=== PATIENT | male | born 2005 | race Caucasian/White ===

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

== ENCOUNTER 2023-11-09 03:41 | Emergency (ER) | payer OTHER, SELFPAY ==
[2023-11-09 03:43] VITALS: BP 126/83; PULSE 79; RESP 18; TEMP 36.6; O2SAT 98; BMI 19.0
--- NOTE | 2023-11-09 04:25 | EDS_ITS ---
HPI History of Present Illness Chief Complaint: Laceration Informant: patient and family Narrative Narrative: Patient is a 17-year-old male with no significant past medical history. He states roughly 30 minutes prior to arrival he was walking through the garage w ith the lights off when he tripped and fell and cut his left forearm/elbow on a piece of metal. He denies striking his head or any loss of consciousness. He denies any other injury. He states his tetanus status was recently updated a few months ago after a cat bite. He states that he is concerned he may need sutures secondary to the laceration and therefore comes in for evaluation [facility] Medical History (Updated 11/09/23 @ 05:[address] Saw Monreal, ) Cellulitis of left lower eyelid Home Medications ?Medication ?Instructions ?Recorded ?Last Taken ?Type cephalexin 500 mg capsule 500 mg PO BID 7 days #14 caps 11/09/23 Unknown Rx Allergy/AdvReac Type Severity Reaction Status Date / Time No Known Allergies Allergy Verified 11/09/23 03:47 Social History Smoking Status: Never smoker ROS ROS ED Constitutional Constitutional ED: Denies chills or fever(s) Eyes Eyes: Denies blurry vision, change in vision or diplopia ENT ENT ED: Denies sore throat Cardiovascular Cardiovascular: Reports other Details: Negative syncope ; Denies chest pain Respiratory/Chest Respiratory/Chest: Denies cough or dyspnea Gastrointestinal Gastrointestinal: Denies abdominal pain, diarrhea, nausea or vomiting Genitourinary Genitourinary ED: Denies dysuria Musculoskeletal Musculoskeletal: Denies myalgias Integumentary Reports other Details: Positive left elbow laceration Neurologic Neurologic: Denies headache(s), paresthesias or weakness Hematologic/Lymphatic Hematologic/Lymphatic: Denies easy bleeding or easy bruising EXAM Physical Exam Const Vital Signs: 11/09/23 03:43 11/09/23 04:33 Temperature 97.8 F 98.0 F Temperature Source Temporal Pulse Rate 79 66 Respiratory Rate 18 18 Blood Pressure 126/83 H 150/86 H Blood Pressure Mean 97 107 Pulse Ox 98 99 Oxygen Delivery Method Room Air Positive well nourished and well developed General Appearance ED: well developed HEENT HEENT Narrative: Normocephalic atraumatic Eyes PERRL and EOMs intact bilaterally Neck supple Neck Narrative: No bony deformity or step-off of the cervical spine no midline tenderness to palpation Resp normal respiratory effort and clear to auscultation bilaterally Cardio regular rate and regular rhythm Extremity Extremity Narrative: Left upper extremity is neurovascular intact; AIN/PIN are intact and normal. Patient has full active range of motion. No bony deformity or joint effusion. Along the proximal portion of the left dorsal aspect of the radius is a 1.5 cm crescent shaped subcutaneous layer deep laceration with minimal ooze of blood and no foreign body. No ligamentous or tendon injury noted Remainder of the exam is normal Neuro oriented x3, CN's II-XII intact bilaterally and no sensory deficits noted Sensorium / Orientation: alert Motor Exam: strength 5/5 throughout Psych mental status grossly normal Skin Skin Narrative: Laceration to the left elbow as documented above MDM MDM MDM Narrative Medical decision making narrative: Patient arrived to the ER with stable vitals and reported a mechanical fall that led to a simple laceration of the left elbow. Exam does not show findings of ligamentous or tendon injury or signs of bony trauma nor is or joint effusion so I do not feel there is need for x-ray. Also the wound was probed and there is no retained foreign body. As the patient's tetanus status was recently updated there is no need to provide this either. However as the wound is moderately contaminated occurring in a dirty garage he will be placed on a 7-day course of Keflex for infection prophylaxis. The wound was closed as document below and fi ndings patient is otherwise safe for discharge Patient had the left elbow wound cleaned with chlorhexidine. It was anesthetized with 5 mL of 2% lidocaine with epinephrine and local fashion. The wound was copiously irrigated with normal saline. The patient then had five 4-0 Ethilon sutures placed in simple interrupted fashion. This brought the wound together with good approximation. Patient tolerated procedure well without complication. History & Record Review Discussion w/independent historian: Patient and Family Discharge Plan Triage Chief Complaint: Laceration Other Complaint: Lower Extremity Injury ED Provider: Saw Monreal Dx/Rx/DC Orders Clinical Impression: Laceration of elbow, left, Accidental fall Instructions: ED Laceration, All Closures Prescriptions: New cephalexin 500 mg capsule 500 mg PO BID 7 Days Qty: 14 0RF Primary Care Provider: Care Physician,No Primary Referrals: Leslie Velasquez MD [Non-Staff] - Activity Restrictions/Additional Instructions: Please take your antibiotic as directed to prevent any infection from the laceration and return to the ER or see your family doctor in 7 to 10 days for suture removal Print Language: Citizen Of [place] Disposition Disposition: Home, Self Care Discharge Date/Time: 11/09/23 04:34
[2023-11-09 04:33] VITALS: BP 150/86; PULSE 66; RESP 18; TEMP 36.7; O2SAT 99
== END 2023-11-09 04:34 | disposition home or self-care (01) ==
LOC: ED 04:31
PROVIDERS: Emergency Provider Emergency Medicine; Visit Provider Emergency Medicine
DX: S51.012A Laceration without foreign body of left elbow, initial encounter (principal); W01.118A Fall on same level from slipping, tripping and stumbling with subsequent striking against other sharp object, initial encounter; Y93.01 Activity, walking, marching and hiking; Y92.59 Other trade areas as the place of occurrence of the external cause
CPT/HCPCS: 12001; 99284